=== PATIENT | male | born 1965 | race Caucasian/White ===

== ENCOUNTER 2019-12-12 07:11 | Outpatient (CLI) | payer OTHER, SELFPAY ==
--- NOTE | 2019-12-12 07:18 | XR_ITS ---
WS: [id number] XR chest 2V* [id number] REASON FOR EXAM: dyspnea FINDINGS: Hyper aerated lungs are seen with flattenings of the hemidiaphragm. The heart is not enlarged. The hilum and apices normal. No osseous abnormalities. XR/XR chest 2V* [id number] IMPRESSION: Chronic obstructive pulmonary disease.
[2019-12-12 08:22] LABS: Anion Gap 15.1 (5-19); Blood Urea Nitrogen 14 mg/dL (6-20); Calcium 9.5 mg/dL (8.5-10.5); Carbon Dioxide 26 mmol/L (22-29); Chloride 105 mmol/L (98-107); Chol HDL Ratio 3.89 mg/dL (1.0-5.00); Cholesterol 148 mg/dL (0-200); Glomerular Filtration Rate 101.1 mL/min (90-130); Glucose 112 mg/dL (65-115); HDL Cholesterol 38 mg/dL (60-100); LDL Cholesterol Calculated 93 mg/dL (50-129); LDL HDL Ratio 2.45 RATIO (0.00-3.22); Osmolality Calculated 291 mOsm/kg (285-295); Potassium 4.1 mmol/L (3.5-5.1); Sodium 142 mmol/L (136-145); Triglycerides 85 mg/dL (0-150)
== END 2019-12-12 07:12 | disposition home or self-care (01) ==
LOC: RAD 07:16
PROVIDERS: PCP Nurse Practitioner Family; Visit Provider Nurse Practitioner Family
DX: R06.00 Dyspnea, unspecified (principal); J44.9 Chronic obstructive pulmonary disease, unspecified; R07.9 Chest pain, unspecified; R73.9 Hyperglycemia, unspecified
CPT/HCPCS: 36415; 71046; 80048; 80061

== ENCOUNTER 2019-12-24 08:14 | Outpatient (CLI) | payer OTHER, SELFPAY ==
[2019-12-24 08:19] VITALS: BMI 20.8
--- NOTE | 2019-12-24 08:20 | ECG_ITS ---
NAME OF STUDY: LEXISCAN SESTAMIBI STRESS TEST INDICATION: Chest Discomfort PROCEDURE: At the baseline, the blood pressure was 123/76 mm Hg, oxygen saturation 98% with a heart rate of 55 bpm. The electrocardiogram showed sinus bradycardia, normal axis with possible old anteroseptal infarct. The Lexiscan was infused over a period of 20 seconds. A total of 0.4 milligrams of Lexiscan was infused. The stress phase was continued for a total of 5 minutes. Heart rate at the end of the stress phase was 72 bpm, oxygen saturation 98% with a blood pressure 128/72 mm Hg. The EKG at the peak infusion revealed sinus rhythm with no significant ST-T wave changes. Sestamibi was injected 20 seconds after the Lexiscan infusion. Blood pressure at the end of the recovery phase was 113/71 mm Hg, oxygen saturation 96% with a heart rate of 76 beats per minute. CONCLUSION: 1. No significant EKG changes with the LexiScan infusion. 2. No LexiScan induced chest pain or cardiac arrhythmia. 3. Normal blood pressure and heart rate response. 4. Sestamibi/sestamibi perfusion scan pending; see separate report. Electronically Signed On 12-24-2019 14:59:02 CDT by Marixa Chu M.D. [email or web address]
--- NOTE | 2019-12-24 08:20 | NMCV_ITS ---
NM rhoda perf SPECT r/s* [id number] Jeramie Celeste Age: 54 Gender: M : 1965 Exam Date: 12/24/2019 09:04 Ordering Phys: Madelin Andrea Technologist: KINA Amezquita Exam Location: [facility] Indications: CHEST PAIN STRESS TEST Please see separate stress test report in [facility] for full findings IMAGE PROTOCOL Rest/Stress 1 Lexiscan Day Radiopharmaceutical Dose (mCi) Administration Site Administered by Rest: Tc-99m 10.5 IV KINA Amin Sestamibi Stress:Tc-99m 32.5 IV KINA Amin Sestamibi Rest: 24-Dec-2019 60 Discovery 630 Stress: 24-Dec-2019 30 Discovery 630 0.4mg Lexiscan. Supine position only as patient was unable to lay prone. SPECT RESULTS Technical Quality: Excellent Raw Data Analysis: Normal Image Corrections: No attenuation or motion correction applied Summed Stress Score: 6 Summed Rest Score: 6 Summed Difference Score: 2 PERFUSION FINDINGS Medium sized perfusion abnormality of mild severity of mid to apical inferior, mid to apical inferoseptal and mid anteroseptal patterson with improved tracer uptake on stress images. This is suggestive of attenuation artifact. FUNCTIONAL RESULTS (calculated via Gated SPECT) Stress Image LV EF (%): 52 Stress EDV (mL):109 TID: 1.06 Stress ESV (mL):52 FUNCTIONAL FINDINGS: The left ventricle is normal in size. Transient Ischemia Dilatation of 1.1. The left ventricular ejection fraction is low normal with a value of 52%. There is normal left ventricular wall thickening. Normal end-diastolic and end-systolic volumes IMPRESSIONS 1. Normal myocardial perfusion imaging. Attenuation artifact noted in an inferior and septal patterson. 2. The left ventricular ejection fraction is low normal with a value of 52%. 3. There is normal left ventricular wall thickening. 4. No coronary ischemia based on the study. Marixa Chu MD (Electronically Signed) Final Date: 24 December 2019 19:09 S
--- NOTE | 2019-12-24 09:55 | SUR.PREOP ---
Patient reports no pain or discomfort prior to the start of the procedure.
[2019-12-24 10:00] VITALS: BP 117/71; PULSE 72
[2019-12-24] MEDS: regadenoson 0.4 Mg/5 ml Syringe IVP (10:00)
== END 2019-12-24 08:15 | disposition home or self-care (01) ==
LOC: CDL 08:15
PROVIDERS: PCP Nurse Practitioner Family; Visit Provider Nurse Practitioner Family
DX: R07.9 Chest pain, unspecified (principal)
CPT/HCPCS: 78452; 93017; A9500; J2785

== ENCOUNTER → 2020-03-14 08:38 | Outpatient (BNVA) | payer OTHER, SELFPAY | PROVIDERS: PCP Nurse Practitioner Family; Visit Provider Internal Medicine | DX: J44.9 Chronic obstructive pulmonary disease, unspecified (principal) | CPT/HCPCS: 87635 ==

== ENCOUNTER → 2020-04-04 12:28 | Outpatient (BNVA) | payer OTHER, SELFPAY | PROVIDERS: PCP Nurse Practitioner Family; Visit Provider Internal Medicine | DX: Z20.828 Contact with and (suspected) exposure to other viral communicable diseases (principal) | CPT/HCPCS: 87635 ==

== ENCOUNTER 2020-04-08 11:09 | Outpatient (CLI) | payer OTHER, SELFPAY ==
--- NOTE | 2020-04-08 14:42 | PFTS_ITS ---
Date of Study:04/08/20 Date of Dictation: MECHANICS: Forced vital capacity (FVC) is normal. Forced expiratory volume in one second (FEV1) is reduced. FEV1/FVC is reduced. FLOW VOLUME LOOP: Reduced flow at all lung volumes. LUNG VOLUMES: Not measured DIFFUSING CAPACITY FOR CARBON MONOXIDE: Mildly reduced INTERPRETATION: The pulmonary function tests are consistent with moderate airflow obstruction. Lung volumes are not measured. Gas exchange (DLCO) is mildly reduced. MTDD
== END 2020-04-08 11:10 | disposition home or self-care (01) ==
LOC: RT 11:14
PROVIDERS: PCP Nurse Practitioner Family; Visit Provider Internal Medicine Critical Care Medicine
DX: J44.9 Chronic obstructive pulmonary disease, unspecified (principal)
CPT/HCPCS: 94010; 94729

== ENCOUNTER → 2020-09-16 11:13 | Outpatient (BNVA) | payer OTHER, SELFPAY | PROVIDERS: PCP Nurse Practitioner Family; Visit Provider Nurse Practitioner Family | DX: M79.671 Pain in right foot (principal); Z68.20 Body mass index [BMI] 20.0-20.9, adult | CPT/HCPCS: 73630 ==

== ENCOUNTER 2020-09-22 11:34 | Outpatient (CLI) | payer OTHER, SELFPAY ==
--- NOTE | 2020-09-22 11:39 | XR_ITS ---
WS: [id number] XR foot RT min 3V* [id number] REASON FOR EXAM: S93.601A - Unspecified sprain of right foot, initial encounter FINDINGS: The examination is unchanged compared to the study 6 days previous. No acute bony or joint abnormality is identified. No soft tissue abnormality noted. XR/XR foot RT min 3V* [id number] IMPRESSION: No interval change and no acute abnormality identified.
== END 2020-09-22 11:35 | disposition home or self-care (01) ==
LOC: RAD 11:37
PROVIDERS: PCP Nurse Practitioner Family; Visit Provider Nurse Practitioner Family
DX: S93.601A Unspecified sprain of right foot, initial encounter (principal); X58.XXXA Exposure to other specified factors, initial encounter
CPT/HCPCS: 73630

== ENCOUNTER → 2021-08-05 15:58 | Outpatient (BNVA) | payer OTHER, SELFPAY | PROVIDERS: PCP Nurse Practitioner Family; Visit Provider Nurse Practitioner Family | DX: R05.9 Cough, unspecified (principal); Z20.822 Contact with and (suspected) exposure to COVID-19 | CPT/HCPCS: 87400; 87635 ==

== ENCOUNTER 2022-03-16 14:26 | Outpatient (CLI) | payer OTHER, SELFPAY ==
--- NOTE | 2022-03-16 15:00 | CT_ITS ---
WS: [id number] LDCT LUNG CANCER SCREENING HISTORY: Lung Cancer screening TECHNIQUE: Axial imaging performed from the apices to 1 cm below the costophrenic angles. Coronal and sagittal reformats are submitted with axial MIP series. All CT scans at [facility] use at least one of these dose optimization techniques: automated exposure control; mA and/or kV adjustment per patient size (includes targeted exams where dose is matched to clinical indication); or iterativ e reconstruction. DLP: 85.79 mGy.cm DIvol: Mean CTDIvol: 1.60 (mGy) COMPARISON: None available. Diagnostic quality: Satisfactory Lung Nodules: No pulmonary nodule, mass or endobronchial lesion. Lungs: Mild pulmonary hyperexpansion. Heart: Normal size. No effusion. Other findings: Small mediastinal and hilar lymph nodes. No adrenal mass. CT/CT lung screening [id number] IMPRESSION: LUNG-RADS: 1-Negative FOLLOW UP: 12 Month: Continue annual screening with LDCT OTHER FINDINGS (S MODIFIER): None.
== END 2022-03-16 14:27 | disposition home or self-care (01) ==
LOC: RAD 14:27
PROVIDERS: PCP Nurse Practitioner Family; Visit Provider Internal Medicine Critical Care Medicine
DX: Z12.2 Encounter for screening for malignant neoplasm of respiratory organs (principal); F17.210 Nicotine dependence, cigarettes, uncomplicated
CPT/HCPCS: 71271

== ENCOUNTER → 2023-01-10 12:32 | Outpatient (BNVA) | payer OTHER, SELFPAY | PROVIDERS: PCP Nurse Practitioner Family; Visit Provider Nurse Practitioner Family | DX: M25.571 Pain in right ankle and joints of right foot (principal); M25.471 Effusion, right ankle | CPT/HCPCS: 73610 ==

== ENCOUNTER 2023-03-18 08:49 | Outpatient (CLI) | payer OTHER, SELFPAY ==
--- NOTE | 2023-03-18 09:00 | CT_ITS ---
WS: [id number] LDCT LUNG CANCER SCREENING HISTORY: lung cancer screening TECHNIQUE: Axial imaging performed from the apices to 1 cm below the costophrenic angles. Coronal and sagittal reformats are submitted with axial MIP series. All CT scans at [facility] use at least one of these dose optimization techniques: automated exposure control; mA and/or kV adjustment per patient size (includes targeted exams where dose is matched to clinical indication); or iterativ e reconstruction. DLP: 48.40 mGy.cm DIvol: Mean CTDIvol: 0.70 (mGy) COMPARISON: 03/16/2022 Diagnostic quality: Satisfactory Lungs: Mild pulmonary hyperinflation and centrilobular emphysema. Benign calcified nodule measures 10 mm in the medial RIGHT lower lobe. No additional masses or nodules. No pneumonia. No endobronchial l esions. Heart: Normal size heart with no pericardial effusion.. Other findings: No mediastinal or hilar adenopathy. Heart is normal size. Small hiatal hernia. Very m inimal atherosclerosis aorta. IMPRESSION: CT/CT lung screening [id number] LUNG-RADS: 2-Benign Appearance or Behavior FOLLOW UP: 12 Month: Continue annual screening with LDCT OTHER FINDINGS (S MODIFIER): None.
== END 2023-03-18 08:50 | disposition home or self-care (01) ==
LOC: RAD 08:54
PROVIDERS: PCP Nurse Practitioner Family; Visit Provider Internal Medicine Pulmonary Disease
DX: Z12.2 Encounter for screening for malignant neoplasm of respiratory organs (principal); F17.210 Nicotine dependence, cigarettes, uncomplicated; J44.9 Chronic obstructive pulmonary disease, unspecified
CPT/HCPCS: 71271

== ENCOUNTER → 2023-11-14 10:22 | Outpatient (BNVA) | payer OTHER, SELFPAY | PROVIDERS: PCP Nurse Practitioner Family; Visit Provider Nurse Practitioner Family | DX: R19.7 Diarrhea, unspecified (principal) | CPT/HCPCS: 87045; 87427; 87449 ==

== ENCOUNTER → 2023-12-06 15:15 | Outpatient (BNVA) | payer OTHER, SELFPAY | PROVIDERS: PCP Nurse Practitioner Family; Visit Provider Family Medicine | DX: R19.7 Diarrhea, unspecified (principal) | CPT/HCPCS: 87045; 87427; 87449 ==

== ENCOUNTER 2023-12-20 08:10 | Day surgery (SDC) | payer OTHER, SELFPAY ==
--- NOTE | 2023-12-20 08:24 | W.PM.OPSUD ---
Surgery/Procedure H&P Update DATE OF PROCEDURE: December 20, 2023 DATE H&P PERFORMED: 11/30/23 H&P UPDATE INFORMATION: I have reviewed H&P completed within last 30 days, I have examined patient prior to procedure, No changes to prior documentation, Changes to prior documentation as noted here, H&P to be scanned into chart and H&P is in [facility] on date indicated PLANNED PROCEDURE: Operation Date: 12/20/23 09:30 Proposed Procedures p Colonoscopy 39847, G0105, Z12.11(Not Applicable) - Harry Car MD
[2023-12-20 08:26] VITALS: BP 122/73; PULSE 86; RESP 18; TEMP 36.3; O2SAT 96; BMI 21.1
[2023-12-20] MEDS: sodium chloride 0.9% 1,000 ML 30 ML IV (08:36)
--- NOTE | 2023-12-20 09:43 | ANES.PREANE2 ---
Pre-Anesthetic Assessment Height/Weight: Height 1.85 m Weight 72.575 kg Temp Pulse Resp BP Pulse Ox O2 Del Method 97.3 F L 86 18 122/73 96 Room Air 12/20/23 08:26 12/20/23 08:26 12/20/23 08:26 12/20/23 08:26 12/20/23 08:26 12/20/23 08:26 Preop Diagnosis: screening Operation Date: 12/20/23 09:30 Proposed Procedures p Colonoscopy 25790, G0105, Z12.11(Not Applicable) - Harry Car MD Was Beta Corinne taken within 24 hours: N/A Was Clonidine taken within 24 hours: N/A Last intake: Intake Last Liquid Date 12/19/23 Last Liquid Time 23:00 Last Solid Date 12/18/23 Last Solid Time 21:00 Social Tobacco and No alcohol 1 pack(s) per day 40 pack years Exam alert, oriented x 3, clear to auscultation bilaterally and regular rate & rhythm Airway Submandibular: within normal limits Cervical ROM: within normal limits Mallampati: Class II Dentition: chipped and full Pulmonary Chronic Obstructive Pulmonary Disease CV/HEM None reported None reported Hepatic None reported GI Gastroesophageal Reflux Disease (with late night meals) Metabolic Hyperlipidemia [facility]/[place] None reported Neuropsych None reported Anesthetic Plan ASA status: 2 Anesthesia: MAC Risk of > 500 ml blood loss (7ml/kg in children): No Medications/Allergies Home Medications Medication Instructions Recorded Confirmed Last Taken Type aspirin 325 mg tablet 325 mg PO PRN PRN Headache 12/15/23 12/20/23 12/15/23 History calcium carbonate 1,000 mg PO PRN PRN Indigestion 12/15/23 12/20/23 12/18/23 History Allergies Allergy/AdvReac Type Severity Reaction Status Date / Time No Known Allergies Allergy Verified 12/20/23 08:22 Current Medications Generic Name Dose Route Start Last Admin Trade Name Freq PRN Reason Stop Dose Admin Sodium Chloride 1,000 mls @ 30 mls/hr 12/20/23 08:30 12/20/23 08:36 Sodium Chloride 0.9% IV 12/21/23 08:29 30 mls/hr .Q24H CLAUDE Administration PFSH Anesthesia Medical History COPD (chronic obstructive pulmonary disease) Corneal abrasion Surgical History Hx of appendectomy Family History Mother Cancer breast Father Cancer lung Sister Lung disease Social History Smoking and tobacco/nicotine status: current every day tobacco/nicotine user cigarettes Packs smoked per day: 1.5 Years cigarettes smoked: 36 [ Other cigarette details: started at age 20] Second hand smoke exposure: Yes Alcohol intake: current Alcohol intake frequency: holidays/special occasions only Substance/Drug Use: never Lives independently: Yes Household members: none Marital status: Single Current occupational status: employed Current occupation: [employer] Current occupational exposures/hazards: Yes Do you think of yourself as: Straight/Heterosexual Current gender identity: Male Data Anesthesia Cardiac Studies: Sestamibi Stress Test (Cardiology) 12/24/19
[2023-12-20 10:23] VITALS: BP 101/65; PULSE 60; RESP 12; TEMP 36.2; O2SAT 100
[2023-12-20 10:34] VITALS: BP 110/71; PULSE 64; RESP 16; O2SAT 97
--- NOTE | 2023-12-20 14:07 | ANE.PACU2 ---
Inpatient post-anesthesia follow up: Airway intact: Yes Vital signs: Temperature 97.2 F Pulse Rate 64 Respiratory Rate 16 Blood Pressure 110/71 Pulse Oximetry 97 Oxygen Delivery Me thod Room Air Oxygen Flow Rate Fraction of Inspir ed Oxygen Hydration adequate: Yes Nausea and vomiting: No Pain level: 2 Mental status: Baseline
== END 2023-12-20 10:52 | disposition home or self-care (01) ==
PROVIDERS: PCP Nurse Practitioner Family; Visit Provider Surgery
PROC: 0DJD8ZZ Inspection of Lower Intestinal Tract, Via Natural or Artificial Opening Endoscopic (ICD-10-PCS; CPT 45378; principal; 2023-12-20 09:30)
DX: Z12.11 Encounter for screening for malignant neoplasm of colon (principal); K63.5 Polyp of colon; J44.9 Chronic obstructive pulmonary disease, unspecified; K21.9 Gastro-esophageal reflux disease without esophagitis; E78.5 Hyperlipidemia, unspecified; F17.210 Nicotine dependence, cigarettes, uncomplicated
CPT/HCPCS: 45380; 88305; J2704; J7030

== ENCOUNTER 2024-05-17 08:00 | Outpatient (CLI) | payer OTHER, SELFPAY ==
--- NOTE | 2024-05-17 08:00 | CT_ITS ---
WS: [id number] LDCT LUNG CANCER SCREENING TECHNIQUE: Noncontrast CT of the chest with coronal and sagittal reformatted images. CLINICAL INFORMATION: F17.210 - Nicotine dependence, cigarettes, uncomplicated COMPARISON: 2022 DLP: 51.59 mGy.cm DIvol: Mean CTDIvol: 0.80 (mGy) All CT scans at [facility] use at least one of these dose optimization techniques: automat ed exposure control; mA and/or kV adjustment per patient size (includes targeted exams where dose is matched to clinical indication); or iterative reconstruction. FINDINGS: Hyperinflation. Centrilobular emphysema. Stable calcified nodule 2 mm in the RIGHT lower lobe mediall y. No new suspicious pulmonary parenchymal abnormalities. A few tiny scattered micronodules. No mediastinal or hilar lymphadenopathy. Small esophageal canal hernia. Mild aortic calcification. No axillary lymphadenopathy. CT/CT lung screening [id number] IMPRESSION: LUNG-RADS: 2-Benign Appearance or Behavior FOLLOW UP: 12 Month: Continue annual screening with LDCT
== END 2024-05-17 08:05 | disposition home or self-care (01) ==
PROVIDERS: PCP Nurse Practitioner Family; Visit Provider Nurse Practitioner Family
DX: Z12.2 Encounter for screening for malignant neoplasm of respiratory organs (principal); J43.9 Emphysema, unspecified; R91.1 Solitary pulmonary nodule; F17.210 Nicotine dependence, cigarettes, uncomplicated
CPT/HCPCS: 71271

== ENCOUNTER 2025-03-26 10:21 | Outpatient (CLI) | payer OTHER, SELFPAY ==
--- NOTE | 2025-03-26 10:27 | XR_ITS ---
WS: [id number] XR cervical spine 3V* [id number] REASON FOR EXAM: M54.2 - Cervicalgia FINDINGS: Exaggeration of the lordosis of the cervical spine with anterior subluxation. No compression deformity or focal lesion of the cervical vertebrae. Mild narrowing of the intervertebral disc spaces C5-T1. Mild anterior and posterior osteophytosis C4-T1. Normal facet joint alignment with mild degenerative arthropathy. No significant listhesis. XR/XR cervical spine 3V* [id number] IMPRESSION: Abnormal cervical spine curvature as above. Degenerative spondylosis as above.
== END 2025-03-26 10:22 | disposition home or self-care (01) ==
LOC: RAD 10:23
PROVIDERS: PCP Nurse Practitioner Family; Visit Provider Nurse Practitioner Family
DX: M54.2 Cervicalgia (principal); M25.532 Pain in left wrist
CPT/HCPCS: 72040

== ENCOUNTER 2025-04-10 14:16 | Outpatient (CLI) | payer OTHER, SELFPAY ==
--- NOTE | 2025-04-10 15:15 | MR_ITS ---
WS: [id number] MRI CERVICAL SPINE NONCONTRAST TECHNIQUE: Sagittal T1, T2 and STIR imaging. Axial T2, gradient, and fiesta imaging. CLINICAL INFORMATION: M54.12 - Radiculopathy, cervical region COMPARISON: None. FINDINGS: Straightening of the normal cervical lordosis. Mild spondylitic changes. Cord signal is normal. C2-C3: Mild facet arthropathy. Spinal canal and foramen are patent. C3-C4: Slight retrolisthesis. Moderate facet arthropathy. Moderate LEFT and mild RIGHT bony foraminal narrowing. C4-C5: Disc osteophyte complex with slight effacement of the ventral thecal sac. Moderate facet arthropathy. Moderate to severe LEFT bony foraminal narrowing. Mild RIGHT bony foraminal narrowing. Moderate facet arthropathy. Uncovertebral joint hypertrophy. C5-C6: Disc osteophyte protrusion with mild central canal stenosis. Severe bilateral bony foraminal narrowing LEFT greater than RIGHT. Moderate facet arthropathy. Uncovertebral joint hypertrophy. C6-C7: Central disc osteophyte protrusion. Moderate facet arthropathy. Moderate LEFT and mild RIGHT bony foraminal narrowing. C7-T1: Grade 1 anterolisthesis. Mild LEFT and no significant RIGHT foraminal narrowing. Small vessel changes in the bre. MR/MR cervical spin wo con* [id number] IMPRESSION: 1. Small central disc osteophyte protrusion with mild central canal stenosis C 5-C6. 2. Shallow LEFT paracentral protrusion C6-7. Spinal canal remains patent. 3. Moderate to severe bony foraminal narrowing worse at LEFT C4-5, bilateral C 5-C6, and LEFT C6-7.
== END 2025-04-10 14:17 | disposition home or self-care (01) ==
LOC: RAD 14:18
PROVIDERS: PCP Nurse Practitioner Family; Visit Provider Nurse Practitioner Family
DX: M54.12 Radiculopathy, cervical region (principal); M47.812 Spondylosis without myelopathy or radiculopathy, cervical region; M25.78 Osteophyte, vertebrae
CPT/HCPCS: 72141

== ENCOUNTER → 2025-04-23 15:16 | Outpatient (BNVA) | payer OTHER, SELFPAY | PROVIDERS: PCP Nurse Practitioner Family; Visit Provider Orthopaedic Surgery | DX: M48.02 Spinal stenosis, cervical region (principal); M50.021 Cervical disc disorder at C4-C5 level with myelopathy | CPT/HCPCS: 72050 ==